=== PATIENT | female | born 1990 | race Caucasian/White ===

== ENCOUNTER 2019-04-19 20:11 | Emergency (ER) | payer MEDICAID ==
[~2019-04-19] VITALS: Ht 154.9 cm; Wt 70.4 kg
[~2019-04-19 20:11] MED LIST: IBUP-1542 PO; IRON45TA2 PO; LOPE2CAP PO; ONDA4TAB35 PO; PREN1TAB17 PO
[2019-04-19 20:20] VITALS: Ht 154.9 cm; Wt 70.4 kg
[2019-04-19] MEDS ORDERED: KETOROLAC 30 MG INJ IM STA (20:50)
[2019-04-19 22:13] VITALS: BP 133/83; PULSE 67; RESP 20
== END 2019-04-19 22:14 | disposition home or self-care (01) ==
LOC: FTE 20:11
DX: N83.201 Unspecified ovarian cyst, right side (principal)
CPT/HCPCS: 76830; 76856; 81003; 81025; 96372; J1885; Z7502